=== PATIENT | male | born 1945 | race Caucasian/White ===

== ENCOUNTER 2021-08-27 17:01 | Inpatient (IN) | payer OTHER ==
[~2021-08-27] VITALS: Ht 172.7 cm; Wt 105.2 kg
[2021-08-27 17:03] VITALS: BP 173/77
[2021-08-27 18:02] LABS: HEMATOCRIT 52.2 % (42.0-52.0); HEMOGLOBIN 17.3 gm/dL (14.0-18.0); MCH 31.8 pg (26.0-34.0); MCHC 33.2 g/dL (28.0-37.0); MCV 95.8 fL (80.0-100.0); RBC 5.45 mil/uL (4.50-6.00); RDW 14.5 % (10.5-14.5); WBC 15.2 thou/uL (4.0-11.0)
[2021-08-27 18:08] LABS: CALCIUM 8.4 mg/dL (8.5-10.1); CREATININE 0.8 mg/dL (0.7-1.3); POTASSIUM 3.4 mmol/L (3.5-5.1)
[2021-08-27 18:14] LABS: ALBUMIN 2.2 g/dL (3.4-5.0); DIRECT BILIRUBIN 0.1 mg/dL (<0.1-0.2); TOTAL PROTEIN 6.4 g/dL (6.4-8.2)
[2021-08-27 18:42] LABS: ABSOLUTE NEUTROPHILS 14.6 thou/uL (1.4-8.2)
[2021-08-27 18:43] LABS: PLATELET COUNT 125 thou/uL (150-400)
[2021-08-27 19:06] LABS: URINE BLOOD TRACE (Negative); URINE CLARITY CLEAR; URINE COLOR YELLOW; URINE GLUCOSE-RANDOM* 2+ (Negative); URINE KETONES 3+ (Negative); URINE LEUKOCYTES-REFLEX NEGATIVE (Negative); URINE NITRITE-REFLEX NEGATIVE (Negative); URINE PROTEIN (DIPSTICK) 1+ (Negative); URINE SPECIFIC GRAVITY >= 1.030 (1.005-1.035)
[2021-08-27 19:11] LABS: ICTOTEST (BILI CONFIRMATORY) Negative (Negative); URINE BILIRUBIN NEGATIVE (Negative)
[2021-08-27 19:23] LABS: BACTERIA-REFLEX 1-9 Few /HPF (None Seen); CASTS None Seen /LPF (None Seen); CRYSTALS None Seen /LPF (None Seen); MUCUS None Seen strn/LPF (None Seen); SQUAMOUS None Seen /LPF (0-3); URINE RBC 1-2 Rare /HPF (NONE SEEN); URINE WBC-REFLEX 0-5 Rare /HPF (0-5); YEAST-REFLEX Present (None Seen)
[2021-08-28 04:00] VITALS: BP 158/77
[2021-08-28 05:58] LABS: HEMOGLOBIN 16.3 gm/dL (14.0-18.0); MCH 31.8 pg (26.0-34.0); MCHC 33.2 g/dL (28.0-37.0); MCV 95.7 fL (80.0-100.0); RBC 5.11 mil/uL (4.50-6.00); RDW 14.5 % (10.5-14.5)
--- NOTE | 2021-08-28 06:14 | NUR ---
PT'S SON GEORGE PHONED THIS MORNING FOR UPDATE ON POC.
[2021-08-28 06:16] LABS: CALCIUM 7.7 mg/dL (8.5-10.1); CREATININE 0.7 mg/dL (0.7-1.3); MAGNESIUM 1.7 mg/dL (1.8-2.4); POTASSIUM 3.2 mmol/L (3.5-5.1)
--- NOTE | 2021-08-28 07:55 | EKG ---
[place] [address] [facility] [place] [address] ELECTROCARDIOGRAM REPORT Name: ALKA PATEL Room #: 170-6 ADM IN .R.#: [id number] Admission: 08/27/21 Attend Phys: Cassi Butt MD Discharge: Date of : 45 Report #: [id number] [facility] ED Test Date: 2021-08-27 Test Time: 17:21:25 Pat Name: ALKA PATEL Department: Room: 170 Gender: M Manager Employee Benefits: [employer] : 1945 Requested By: Muriel Moreira Order Number: [id number] MD: Brant Lawson Measurements Intervals [place] Rate: 110 P: 34 CO: 143 QRS: -6 QRSD: 94 T: 62 QT: 335 QTc: 454 Interpretive Statements Sinus tachycardia ventricular premature complexes Probable left atrial enlargement Probable anterior infarct, old No previous ECG available for comparison Electronically Signed On 08-28-2021 7:55:00 FUNCTIONAL MANAGER by Brant Lawson [email or web address] <ELECTRONICALLY SIGNED> By: rBant Lawson MD, [facility] 08/28/21 0755 [id number] Brant Lawson MD, FACC /EPI
[2021-08-28 08:02] VITALS: BP 135/54
[2021-08-28 12:41] VITALS: BP 159/76
[2021-08-28 21:48] VITALS: BP 167/59
[2021-08-29 01:06] LABS: GLYCOHEMOGLOBIN (HGB A1C) 6.9 % (4.8-5.6)
--- NOTE | 2021-08-29 08:38 | NUR ---
UPDATED PT SON ON CARE PLAN AT THIS TIME. ENCOURAGED TO CALL BACK WITH ANY FURTHER QUESTIONS OR CONCERNS
[2021-08-29 09:55] LABS: CHOLESTEROL 97 mg/dL (<200); HDL CHOLESTEROL 10 mg/dL (>40); LDL CHOLESTEROL 58 mg/dL (<100); TC:HDL 9.7 Ratio (Not establshd); TRIGLYCERIDE 147 mg/dL (<150); VLDL 29 mg/dL (<40)
--- NOTE | 2021-08-29 15:24 | NUR ---
Pt being treated for metabolic enceph. [facility] by [facility] [employer] and they may have a bed today per the transfer RN [phone], fax [phone]. Clinical updated faxed. Pt initially was wanting to stay here (under his medicare coverage )but after he discussed with his son Tevin, he prefers transfer for continuity of care and ENDO services at the [facility]. Unit RN updated. [facility] the [facility]. The attending is aware. Tevin can be reached at [phone] and will need to be updated if pt can transfer. ER is getting a chart copy and a copy of his imaging via disc. Transfer form and kcfd forms in progress. Awaiting confirmation call back from the [facility] with an accepting physician and bed number.
[2021-08-29 21:54] VITALS: BP 153/77
--- NOTE | 2021-09-24 14:16 | HC ---
[facility] [address] [place] [address] CONSULTATION Name: ALKA PATEL Room #: 170-15 [facility] IN ..#: [id number] Admission: 08/27/21 Attend Phys: Cassi Butt MD Discharge: 08/29/21 Date of : 45 Report #: [id number] THIS REPORT FOR: cc: NO FAMILY PHYSICIAN or PCP NO FAMILY PHYSICIAN or PCP Guille Temple MD ~ DATE OF SERVICE: 08/28/2021 HISTORY OF PRESENT ILLNESS: A 76-year-old male patient who was seen by me earlier today. Subsequently, I talked to the patient's xtlrxgcs-uk-vyw who indicated that she is in medical field. I again talked to her this evening after the results are available. The patient was in [facility]. This was in relation to the patient's 's hip surgery. Then, he ate a lot of food for some reason, drank alcohol. He developed acute pancreatitis. He was given Dilaudid and he usually does not take any narcotics. He was given 14 pills. It is not clear how many pills he took and he came here with confusion. All his neurological symptoms have resolved since that time. REVIEW OF SYSTEMS: A 14-point review of system was carried out. 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 Record indicates that he has alcoholism. When I talked to the ydhqhxxs-qc-wua she says he drinks alcohol, but she did not know how much. He does have posttraumatic stress disorder. At one time, he had a TIA, but it is not clear what symptoms he had. He has a history of prostate carcinoma. He has a history of hypertension. When I saw him, he was pretty much back to the baseline. Xmcnrqtm-vy-hcr said he was talking gibberish at one time, but what I think what she meant was that he was not able to communicate very properly. PAST MEDICAL HISTORY: Positive for hypertension, but when I asked the gcoaqaoi-bz-gey, she did not note that much about dementia. FAMILY HISTORY: Unremarkable. SOCIAL HISTORY: He is a former smoker, but he does drink alcohol. It is not clear how much he drinks alcohol. PHYSICAL EXAMINATION: When I saw this patient, he was alert, responsive, able to follow simple commands. He was oriented. He was able to tell me who the president is. His speech was intact. Cranial nerve examination 2-12 looks mostly unremarkable. Neuromuscular examination was carried out. It was symmetrical. There was a good position sense on both sides. Reflexes were diminished in the legs. Pulses were somewhat difficult to feel. Blood pressure was 159/56, respirations 12, pulse is 110. LABORATORY DATA: White count was 14.8. The sodium was a trace low at 133 and subsequently had an MRI and an EEG and I reviewed that, which showed no acute [address] [address] CONSULTATION Name: ALKA PATEL Room #: 170-15 [facility] [place]#: [id number] Admission: 08/27/21 Attend Phys: Cassi Butt MD Discharge: 08/29/21 Date of : 45 Report #: [id number] abnormality. IMPRESSION AND PLAN: Most likely the patient's symptoms is because of encephalopathy. I did an MRI because of prior history of TIA as well as the zkfmnmvf-dy-vis thinking that he may be gibberish at one time, and I also will get a carotid Doppler to complete the workup, I will look at it until that show any abnormality. I do not think anything neurologically we have to suggest and the main thing is patient needs management of other systemic problems. I spent more than 50 minutes of time taking care of this patient today and majority was spent counseling, coordinating his care. <ELECTRONICALLY SIGNED> By: Guille Temple MD 09/24/21 1416 1732 0218 Guille Temple MD /nt
--- NOTE | 2021-09-24 14:17 | EEG ---
[facility] [address] [place] [address] ELECTROENCEPHALOGRAM Name: ALKA PATEL Room #: 170-15 DIS IN M.R.#: [id number] Admission: 08/27/21 Attend Phys: Cassi Butt MD Discharge: 08/29/21 Date of : 45 Report #: [id number] THIS REPORT FOR: //name// DATE OF SERVICE: 08/28/2021 This patient is being evaluated for altered mental status. EEG was done by placing the electrode by standard 10-20 system of electrode placement. Both referential and sequential montages were used for recording. Background activity in this patient's EEG is about 9 Hz and 20 microvolt. This background activity is intermixed with theta range slowing throughout the records. Photic stimulation was unremarkable. Throughout the record, no active epileptiform activity was noticed. IMPRESSION: EEG is mildly intermixed with theta range slowing on both sides. That is a nonspecific abnormality which can occur with drowsiness, effect of psychotropic medication, mild encephalopathy, early dementia, etc. No active epileptiform activity was noticed. Clinical correlation is recommended. <ELECTRONICALLY SIGNED> By: Guille Temple MD 09/24/21 1417 1644 1758 Guille Temple MD /nt
== END 2021-08-29 21:54 | disposition short-term general hospital (02) | DRG 70 ==
LOC: ER 17:01 → EROBS 21:11
PROVIDERS: Emergency Medicine; Nurse Practitioner Family; Psychiatry & Neurology Neuromuscular Medicine; ADMIT Internal Medicine; ATTEND Internal Medicine
DX: G93.41 Metabolic encephalopathy (principal); E43 Unspecified severe protein-calorie malnutrition; R65.11 Systemic inflammatory response syndrome (SIRS) of non-infectious origin with acute organ dysfunction; K85.90 Acute pancreatitis without necrosis or infection, unspecified; B37.49 Other urogenital candidiasis; I10 Essential (primary) hypertension; F03.90 Unspecified dementia, unspecified severity, without behavioral disturbance, psychotic disturbance, mood disturbance, and anxiety; E11.9 Type 2 diabetes mellitus without complications; E78.5 Hyperlipidemia, unspecified; I49.3 Ventricular premature depolarization; F10.20 Alcohol dependence, uncomplicated; D69.6 Thrombocytopenia, unspecified; F43.10 Post-traumatic stress disorder, unspecified; Z20.822 Contact with and (suspected) exposure to COVID-19; F32.9 Major depressive disorder, single episode, unspecified; R19.07 Generalized intra-abdominal and pelvic swelling, mass and lump; Z87.891 Personal history of nicotine dependence; Z86.73 Personal history of transient ischemic attack (TIA), and cerebral infarction without residual deficits; Z85.46 Personal history of malignant neoplasm of prostate; Z82.49 Family history of ischemic heart disease and other diseases of the circulatory system; Z80.0 Family history of malignant neoplasm of digestive organs; Z68.35 Body mass index [BMI] 35.0-35.9, adult